=== PATIENT | female | born 1940 | race African-American/Black ===

== ENCOUNTER 2017-08-08 09:46 | Emergency (ER) | payer OTHER ==
[~2017-08-08] VITALS: Ht 162.6 cm; Wt 80.0 kg
[2017-08-08] MEDS ORDERED: SODIUM CHLORIDE 0.9% 1,000 ML IV ONE (10:37)
[2017-08-08 11:25] LABS: BASOPHILS % 0.3 % (0.0-2.0); EOSINOPHILS % 0.7 % (0.0-5.0); HEMATOCRIT. 45.7 % (36.0-48.0); HEMOGLOBIN. 15.5 g/dL (12.0-16.0); LYMPHOCYTES % 12.5 % (20.0-50.0); MEAN CORPUSCULAR HEMOGLOBIN 32.3 pg (28.0-32.0); MEAN PLATELET VOLUME 10.3 fl (7.4-10.4); MONOCYTES % 9.6 % (2.0-8.0); NEUTROPHILS % 76.9 % (40.0-76.0); PLATELET 145 x1000/uL (130-400); RED CELL DISTRIBUTION WIDTH 13.6 % (11.6-14.6)
[2017-08-08 11:28] LABS: CHLORIDE 114 mEq/L (98-107)
[2017-08-08 11:41] LABS: INR 1.1; PROTHROMBIN TIME 11.7 sec (9.4-11.6)
[2017-08-08] MEDS ORDERED: ONDANSETRON HCL 4MG/2ML VIAL IV ONE (13:00)
[2017-08-08 13:06] VITALS: BP 147/99
[2017-08-08 13:25] LABS: CLARITY URINE CLEAR (CLEAR); COLOR URINE YELLOW (YELLOW); PH URINE 5.5 (4.5-8.0); SPECIFIC GRAVITY URINE 1.024 (1.005-1.030)
[2017-08-08 13:26] LABS: KETONES URINE TRACE (NEGATIVE); LEUKOCYTE ESTERASE URINE 2+ (NEGATIVE); NITRITE URINE NEGATIVE (NEGATIVE); OCCULT BLOOD URINE NEGATIVE (NEGATIVE); PROTEIN URINE 1+ (NEGATIVE)
== END 2017-08-08 15:16 | disposition short-term general hospital (02) ==
LOC: ER 10:08 → EDBD 10:08 → ER 15:16
DX: R55 Syncope and collapse (principal); R00.1 Bradycardia, unspecified; I12.0 Hypertensive chronic kidney disease with stage 5 chronic kidney disease or end stage renal disease; E11.22 Type 2 diabetes mellitus with diabetic chronic kidney disease; N18.6 End stage renal disease; Z88.0 Allergy status to penicillin
CPT/HCPCS: 36415; 70450; 71045; 80053; 81003; 84484; 85025; 85610; 93005; 96360; 99285; J7030

== ENCOUNTER 2025-03-15 11:33 | Emergency (ER) | payer OTHER ==
[~2025-03-15] VITALS: Ht 170.2 cm; Wt 45.0 kg
[2025-03-15 11:36] VITALS: O2SAT 100
[2025-03-15] MEDS: SODIUM CHLORIDE 0.9% 1,000 ML IV ONE (12:06)
[2025-03-15 12:11] LABS: BG DEOXYHEMOGLOBIN 21.8 % (0.0-5.0)
[2025-03-15 12:29] LABS: BASOPHILS % 0.7 % (0.0-2.0); EOSINOPHILS % 0.3 % (0.0-5.0); HEMATOCRIT. 42.9 % (36.0-48.0); HEMOGLOBIN. 14.3 g/dL (12.0-16.0); LYMPHOCYTES % 26.9 % (20.0-50.0); MEAN PLATELET VOLUME 10.0 fl (7.4-10.4); MONOCYTES % 10.1 % (2.0-8.0); NEUTROPHILS % 62.0 % (40.0-76.0); PLATELET 146 x1000/uL (130-400); RED BLOOD CELL COUNT 4.56 mill/uL (4.2-5.4); RED CELL DISTRIBUTION WIDTH 13.8 % (11.6-14.6)
[2025-03-15 12:43] LABS: CREATININE 1.1 mg/dL (0.6-1.0); UREA NITROGEN BLOOD 16 mg/dL (9-23)
[2025-03-15 12:44] LABS: TROPONIN I HIGH SENSITIVITY 4 ng/L (3.0-34)
[2025-03-15 12:45] LABS: ASPARTATE AMINOTRANSFERASE 10 IU/L (<34); BILIRUBIN DIRECT 0.1 mg/dL (<=3.0); BILIRUBIN TOTAL 0.5 mg/dL (0.1-1.0); PROTEIN TOTAL 6.6 g/dL (6.0-8.3)
[2025-03-15 15:10] LABS: TROPONIN I HIGH SENSITIVITY 7 ng/L (3.0-34)
[2025-03-15 19:26] VITALS: BP 186/78; PULSE 56; RESP 20; TEMP 36.7; O2SAT 97
== END 2025-03-15 19:40 | disposition short-term general hospital (02) ==
LOC: ER 11:33 → EDBEDREQTM 17:46 → EDBEDREQ 17:46 → ER 19:40 → CMPBEDREQ 03-16 08:45
DX: R41.82 Altered mental status, unspecified (principal); R55 Syncope and collapse; E11.65 Type 2 diabetes mellitus with hyperglycemia; E78.5 Hyperlipidemia, unspecified; I10 Essential (primary) hypertension; Z88.0 Allergy status to penicillin
CPT/HCPCS: 80076; 80048; 82010; 80320; 83880; 83690; 85025; 84484; 36415; 71045; 70450; 82375; 82803; 93005; 96360; 99291; J7030; A4606; G0480